=== PATIENT | female | born 1960 | race Caucasian/White ===

== ENCOUNTER 2020-08-19 16:12 | Emergency (ER) | payer SELFPAY ==
[~2020-08-19] VITALS: Ht 154.9 cm; Wt 65.0 kg
--- NOTE | 2020-08-19 16:39 | NUR ---
Patient presents to ER c/o gen abd pain radiating to chest and right shoulder for "awhile." Patient also c/o diarrhea x1 month. Patient states she vomited once yesterday. Today, the pain is increasing. Patient states the pain is worse with a deep breath and sometimes it makes her SOB. Patient is in NAD. Respirations even and unlabored.
[2020-08-19] MEDS ORDERED: DICYCLOMINE 10 MG CAPSULE PO ONE (17:00)
[2020-08-19] MEDS ORDERED: ONDANSETRON 2MG/ML, 2ML IVPush ONE (17:00)
[2020-08-19] MEDS ORDERED: SODIUM CHLORIDE FLUSH 10ML SYR IVF ONE (17:00)
[2020-08-19] MEDS ORDERED: SODIUM CHLORIDE 0.9% 1,000ML IVBOLUS ONE (17:00)
[2020-08-19 17:02] LABS: BASOPHILS % (AUTO) 0 % (0-1); EOSINOPHILS % (AUTO) 3 % (1-7); LYMPHOCYTES % (AUTO) 26 % (22-44); MEAN CORPUSCULAR HEMOGLOBIN 29.7 pg (27.0-34.8); MEAN PLATELET VOLUME 8.2 fL (7.4-10.4); MONOCYTES % (AUTO) 6 % (2-9); NEUTROPHILS % (AUTO) 64 % (42-75); PLATELET COUNT 433 x10^3/uL (130-400); RED CELL DISTRIBUTION WIDTH 13.8 % (9.6-15.2)
[2020-08-19 17:03] LABS: MD NO
[2020-08-19 17:12] LABS: ALANINE AMINOTRANSFERASE 21 U/L (12-78); ALBUMIN 3.7 g/dL (3.4-5.0); ANION GAP 4 mmol/L (5-15); CALCIUM 10.4 mg/dL (8.5-10.1); CHLORIDE 109 mmol/L (98-107); CREATININE 1.04 mg/dL (0.55-1.02)
[2020-08-19 17:18] LABS: ALKALINE PHOSPHATASE 96 U/L (45-117); BILIRUBIN,TOTAL 0.2 mg/dL (0.2-1.0); TOTAL PROTEIN 7.9 g/dL (6.4-8.2); TROPONIN I < 0.015 ng/mL (0.000-0.045)
[2020-08-19] MEDS ORDERED: ONDANSETRON 2MG/ML, 2ML ONE (17:20)
[2020-08-19] MEDS ORDERED: DICYCLOMINE 20 MG TABLET ONE ×2 (17:20→17:26)
[2020-08-19 17:25] VITALS: BP 144/68
--- NOTE | 2020-08-19 17:25 | NUR ---
IV INITIATED AND IV FLUIDS INFUSING. PT RESTING COMFORTABLY. CALL LIGHT WITHIN REACH.
--- NOTE | 2020-08-19 18:00 | NUR ---
PT TO CT
[2020-08-19 18:30] LABS: MICROSCOPIC AUTO
[2020-08-19] MEDS ORDERED: OMNIPAQUE 350 MG/ML, 100ML BOTTLE ONE (18:35)
--- NOTE | 2020-08-19 19:33 | NUR ---
DISCHARGE INSTRUCTIONS REVIEWED WITH PT. ALL QUESTIONS ANSWERED AT THIS TIME.
== END 2020-08-19 19:35 | disposition home or self-care (01) ==
LOC: ED 18:16
DX: N30.00 Acute cystitis without hematuria (principal); R10.84 Generalized abdominal pain; R11.2 Nausea with vomiting, unspecified; R19.7 Diarrhea, unspecified; R07.89 Other chest pain; R10.32 Left lower quadrant pain
CPT/HCPCS: 36415; 71045; 74177; 80053; 81001; 83690; 84484; 85025; 87077; 87086; 93005; 96361; 96374; 99285; J2405; J7030; Q9967; 87186